=== PATIENT | male | born 1965 | race Hispanic/Latino ===

== ENCOUNTER 2017-04-16 08:46 | Emergency (ER) | payer MEDICAID, MEDICARE, OTHER ==
[2017-04-16 08:54] VITALS: BP 145/87; PULSE 93; TEMP 98; O2SAT 97
[2017-04-16 08:55] VITALS: BMI 35.4
[2017-04-16] MEDS ORDERED: Sodium Chloride 0.9% 1,000 ML IV STA (09:28)
--- NOTE | 2017-04-16 09:35 | ED PDOC ---
HPI: Abdomen Time Seen by Provider: 04/16/17 09:14 Chief Complaint (Nursing): Abdominal Pain History Per: Patient History/Exam Limitations: no limitations Onset/Duration Of Symptoms: Hrs (8), Persistent Outside of [place] travel?: No Current Symptoms Are (Timing): Still Present Severity: Severe Location Of Pain/Discomfort: Other (Right flank pain) Quality Of Discomfort: Dull, Aching, Stabbing Associated Symptoms: Nausea, Back Pain, Urinary Symptoms. denies: Fever, Chills , Vomiting, Diarrhea, Loss Of Appetite, Chest Pain, Constipation Exacerbating Factors: None Alleviating Factors: None Last Bowel Movement: Today Additional History Per: Patient Additional Complaint(s): Pt co right flank pain radiating to midback for several hours. Reports dysuria for 1 week. No fevers. Past Medical History Reviewed: Historical Data, Nursing Documentation, Vital Signs Vital Signs: Last Vital Signs Temp 98 F 04/16/17 08:53 Pulse 93 H 04/16/17 08:53 Resp BP 145/87 04/16/17 08:53 Pulse Ox 97 04/16/17 11:50 - Medical History PMH: HTN, Hypercholesterolemia Denies: Chronic Kidney Disease - Surgical History Surgical History: Cholecystectomy - Family History Family History: States: No Known Family Hx - Home Medications Home Medications: Ambulatory Orders Medication Instructions Recorded Bisoprolol Fumarate [Zebeta] 1 bottle PO DAILY 03/22/14 Hydrochlorothiazide/Valsarta 160 bottle PO DAILY 03/22/14 [Diovan Hct 25 mg-160 mg] Omeprazole [PrilOSEC] 40 bottle PO DAILY 03/22/14 Simvastatin 20 bottle PO DAILY 03/22/14 Sulfamethoxazole/Trimethoprim 1 tab PO BID #20 tab 04/16/17 [Bactrim DS 800 mg-160 mg] Tamsulosin [Flomax] 0.4 mg PO DAILY #14 cap 04/16/17 - Allergies Allergies/Adverse Reactions: Allergies Allergy/AdvReac Type Severity Reaction Status Date / Time No Known Allergies Allergy Verified 03/22/14 08:09 Review of Systems ROS Statement: Except As Marked, All Systems Reviewed And Found Negative Physical Exam - Reviewed Nursing Documentation Reviewed: Yes Vital Signs Reviewed: Yes - Physical Exam Appears: Positive for: Non-toxic, No Acute Distress Head Exam: Positive for: ATRAUMATIC, NORMAL INSPECTION Skin: Positive for: Warm, Dry Eye Exam: Positive for: EOMI Cardiovascular/Chest: Positive for: Regular Rate, Rhythm. Negative for: Tachycardia Respiratory: Positive for: Normal Breath Sounds. Negative for: Rales, Wheezing , Respiratory Distress Gastrointestinal/Abdominal: Positive for: Soft. Negative for: Tenderness Back: Positive for: R CVA Tenderness. Negative for: L CVA Tenderness Extremity: Positive for: Normal ROM Neurologic/Psych: Positive for: Alert, Oriented - Laboratory Results Result Diagrams: 04/16/17 09:45 04/16/17 09:45 - ECG O2 Sat by Pulse Oximetry: 97 - Progress Re-evaluation Time: 11:47 Condition: Re-examined, Improved Medical Decision Making Medical Decision Making: Impression Right flank pain Diff include renal colic, UTI Plan Labs CT abdomen w/o contrast Udip Toradol IV IVF reassess Time: 10:39 --Abdomen/pelvis CT FINDINGS: LOWER THORAX: Lung bases clear. No infiltrate effusion or basilar pneumothorax. Heart size of normal within range of normal. Tiny hiatal hernia. LIVER: Liver is mildly enlarged measuring nearly 20 cm in CC dimension. No obvious hepatic mass or collection. GALLBLADDER AND BILE DUCTS: Status post cholecystectomy with metallic clips in the gallbladder fossa. PANCREAS: The pancreas is slightly atrophic and fatty replaced. No obvious pancreatic mass collection or calcification seen on this noncontrast study. SPLEEN: Spleen is mildly enlarged measuring nearly 14 cm in AP dimension ADRENALS: There are no adrenal lesions. KIDNEYS AND URETERS: There is mild dilatation of the right renal pelvis and right ureter with some vague infiltration changes surrounding the right ureter. There is a very tiny hyperdense focus in the right UVJ region seen on axial image series 3 image 171 measuring approximate 1.2 mm. This could represent a tiny UVJ henny of calcium/UVJ calculus. BLADDER: Urinary bladder is incompletely distended which may account for slight thick- walled appearance. Muscular hypertrophy may contribute. Cystitis would be less likely though not completely excluded. Caps REPRODUCTIVE: Prostatic calcifications are present. APPENDIX: Normal-appearing appendix best seen on axial image number [id number] BOWEL: Evaluation of the bowel is limited due to the lack of oral contrast material. The stomach incompletely distended. Visualized loops small bowel exhibit normal contour and caliber. No evidence of acute mechanical small bowel obstruction. Stool and air seen throughout colon. PERITONEUM: Unremarkable. No fluid collection. No free air. Small fat containing umbilical hernia. LYMPH NODES: Unremarkable. No enlarged lymph nodes. VASCULATURE: No evidence of abdominal aortic or iliac artery aneurysm. BONES: Minor multilevel degenerative spondylosis of the lower thoracic and lumbar spine. There is mild levoscoliosis centered at thoracolumbar junction. Several nonspecific sclerotic foci seen scattered throughout the pelvis and sacrum are likely representing bone islands. Possibility of a sclerotic metastasis would be less likely in the absence of pertinent clinical history however not completely excluded. Clinical correlation recommended. If there history primary cancer in this patient consider followup bone scan. OTHER FINDINGS: None. IMPRESSION: There is a tiny proximal 1.2 mm hyperdense focus within the right UVJ region that could represent a henny of calcium-tiny UVJ calculus. Mild right-sided hydronephrosis with infiltration changes surrounding the right ureter. Findings discussed with Dr. Giles at approximately 10:35 p.m. with written down and read back verification. Hepatomegaly. Splenomegaly. Status post cholecystectomy. Scattered sclerotic foci within the pelvis and sacrum likely representing bone islands or osteomas. Rule of more aggressive pathology with clinical correlation as above. . Disposition - Clinical Impression Clinical Impression: Ureteral calculi, UTI (urinary tract infection) - Patient ED Disposition Is Patient to be Admitted: No Doctor Will See Patient In The: Office Counseled Patient/Family Regarding: Studies Performed, Diagnosis, Need For Followup - Disposition Referrals: Alberto Cooper MD [Staff Provider] - Disposition: Routine/Home Disposition Time: 11:49 Condition: GOOD Additional Instructions: Take medications as instructed. Follow up with your PCP in 2-3 days. you will be called in 2 days for follow up phone and video appointment. Prescriptions: Sulfamethoxazole/Trimethoprim [Bactrim DS 800 mg-160 mg] 1 tab PO BID #20 tab Tamsulosin [Flomax] 0.4 mg PO DAILY #14 cap Instructions: Kidney Stones (ED), Urinary Tract Infection in Men (ED) Forms: [employer] ([place]ian)
[2017-04-16 09:48] LABS: RBC URINE 798 /hpf (0-3); URINE BACTERIA OCC (<OCC); URINE BILIRUBIN NEGATIVE (NEGATIVE); URINE BLOOD LARGE (NEGATIVE); URINE COLOR YELLOW (YELLOW); URINE GLUCOSE (UA) NEG (Normal); URINE KETONE NEGATIVE (NEGATIVE); URINE LEUKOCYTE ESTERASE LARGE Leu/uL (Negative); URINE PROTEIN >=500 mg/dL (NEGATIVE); URINE UROBILINOGEN 0.2-1.0 mg/dL (0.2-1.0); WBC URINE 1021 /hpf (0-5)
[2017-04-16 09:55] LABS: BASO % 0.2 % (0.0-2.0); EOS % 0.4 % (0.0-4.0); HEMATOCRIT 36.3 % (35.0-51.0); LYMPH # 1.2 K/uL (1.0-4.3); LYMPH % 11.9 % (20.0-40.0); MEAN CELL VOLUME 86.2 fl (80.0-94.0); MEAN CORPUSCULAR HEMOGLOBIN 28.7 pg (27.0-31.0); MEAN CORPUSCULAR HGB CONC 33.3 g/dL (33.0-37.0); MEAN PLATELET VOLUME 9.4 fl (7.2-11.7); MONO # 1.1 K/uL (0.0-0.8); MONO % 10.7 % (0.0-10.0); NEUT % 76.8 % (50.0-75.0); NRBC % 0.5 % (0.0-0.0); WHITE BLOOD COUNT 10.5 K/uL (4.8-10.8)
[2017-04-16 10:07] LABS: BLOOD UREA NITROGEN 15 mg/dl (9-20); CALCIUM 9.3 mg/dL (8.4-10.2); CARBON DIOXIDE 27 mmol/L (22-30); CHLORIDE 104 mmol/L (98-107); GFR AFRICAN-AMERICAN > 60; GLUCOSE,RANDOM 114 mg/dL (75-110); SODIUM 141 mmol/l (132-148)
--- NOTE | 2017-04-16 10:41 | CT ---
PROCEDURE: CT abdomen pelvis dated 04/16/2017 HISTORY: Right-sided flank pain dysuria COMPARISON: None. TECHNIQUE: Contiguous axial images of the abdomen and pelvis. Oral contrast was administered. No IV contrast given. Coronal and Sagittal reformats generated. This CT exam was performed using one or more of the following dose reduction techniques: Automated exposure control, adjustment of the mA and/or kV according to patient size, and/or use of iterative reconstruction technique. Total exam DLP = 1159.22 mGy-cm. FINDINGS: LOWER THORAX: Lung bases clear. No infiltrate effusion or basilar pneumothorax. Heart size of normal within range of normal. Tiny hiatal hernia. LIVER: Liver is mildly enlarged measuring nearly 20 cm in CC dimension. No obvious hepatic mass or collection. GALLBLADDER AND BILE DUCTS: Status post cholecystectomy with metallic clips in the gallbladder fossa. PANCREAS: The pancreas is slightly atrophic and fatty replaced. No obvious pancreatic mass collection or calcification seen on this noncontrast study. SPLEEN: Spleen is mildly enlarged measuring nearly 14 cm in AP dimension ADRENALS: There are no adrenal lesions. KIDNEYS AND URETERS: There is mild dilatation of the right renal pelvis and right ureter with some vague infiltration changes surrounding the right ureter. There is a very tiny hyperdense focus in the right UVJ region seen on axial image series 3 image 171 measuring approximate 1.2 mm. This could represent a tiny UVJ henny of calcium/UVJ calculus. BLADDER: Urinary bladder is incompletely distended which may account for slight thick-walled appearance. Muscular hypertrophy may contribute. Cystitis would be less likely though not completely excluded. Caps REPRODUCTIVE: Prostatic calcifications are present. APPENDIX: Normal-appearing appendix best seen on axial image number [id number] BOWEL: Evaluation of the bowel is limited due to the lack of oral contrast material. The stomach incompletely distended. Visualized loops small bowel exhibit normal contour and caliber. No evidence of acute mechanical small bowel obstruction. Stool and air seen throughout colon. PERITONEUM: Unremarkable. No fluid collection. No free air. Small fat containing umbilical hernia. LYMPH NODES: Unremarkable. No enlarged lymph nodes. VASCULATURE: No evidence of abdominal aortic or iliac artery aneurysm. BONES: Minor multilevel degenerative spondylosis of the lower thoracic and lumbar spine. There is mild levoscoliosis centered at thoracolumbar junction. Several nonspecific sclerotic foci seen scattered throughout the pelvis and sacrum are likely representing bone islands. Possibility of a sclerotic metastasis would be less likely in the absence of pertinent clinical history however not completely excluded. Clinical correlation recommended. If there history primary cancer in this patient consider followup bone scan. OTHER FINDINGS: None. IMPRESSION: There is a tiny proximal 1.2 mm hyperdense focus within the right UVJ region that could represent a henny of calcium-tiny UVJ calculus. Mild right-sided hydronephrosis with infiltration changes surrounding the right ureter. Findings discussed with Dr. Giles at approximately 10:35 p.m. with written down and read back verification. Hepatomegaly. Splenomegaly. Status post cholecystectomy. Scattered sclerotic foci within the pelvis and sacrum likely representing bone islands or osteomas. Rule of more aggressive pathology with clinical correlation as above. .
[2017-04-16] MEDS ORDERED: cefTRIAXone (Rocephin) 1 gm Inj ONE (10:51)
== END 2017-04-16 13:04 | disposition home or self-care (01) ==
LOC: H.ER 08:46
DX: N20.1 Calculus of ureter (principal); N39.0 Urinary tract infection, site not specified; I10 Essential (primary) hypertension; Z90.49 Acquired absence of other specified parts of digestive tract
CPT/HCPCS: 74176; 80048; 81003; 85025; 87040; 87086; 87181; 96374; 99284; J0696; J1885; J7040